=== PATIENT | male | born 1985 | race Caucasian/White ===

== ENCOUNTER 2017-12-11 02:59 | Emergency (ER) | payer OTHER ==
[2017-12-11] MEDS: IBUPROFEN 600 MG TAB PO (04:59)
[2017-12-11] MEDS: ONDANSETRON (ODT) 4 MG TAB ODT (04:59)
[2017-12-11] MEDS: DICYCLOMINE 10 MG CAP PO (04:59)
== END 2017-12-11 05:29 | disposition home or self-care (01) ==
LOC: FTE 02:59
DX: A08.4 Viral intestinal infection, unspecified (principal)
CPT/HCPCS: 99284; Z7502